=== PATIENT | male | born 1980 | race African-American/Black ===

== ENCOUNTER 2018-04-11 12:17 | Emergency (ER) | payer MEDICAID ==
[~2018-04-11] VITALS: Ht 182.9 cm; Wt 91.0 kg
[2018-04-11] MEDS ORDERED: KETOROLAC 60MG/2ML VIAL IM ONE (13:15)
[2018-04-11] MEDS ORDERED: DEXAMETHASONE 10 MG/ML VIAL IM ONE (13:15)
[2018-04-11 13:51] VITALS: BP 120/83
== END 2018-04-11 14:24 | disposition home or self-care (01) ==
LOC: ER 12:17
DX: M54.32 Sciatica, left side (principal)
CPT/HCPCS: 96372; 99284; J1100; J1885